=== PATIENT | male | born 1985 | race Caucasian/White ===

== ENCOUNTER 2018-12-02 16:32 | Emergency (ER) | payer SELFPAY | END 2018-12-03 01:34 | disposition left against medical advice (07) | LOC: FTE 12-03 01:34 | DX: S00.11XA Contusion of right eyelid and periocular area, initial encounter (principal); Y04.8XXA Assault by other bodily force, initial encounter | CPT/HCPCS: 70450; 70486; 72125; 99284-25 ==

== ENCOUNTER 2018-12-04 09:59 | Emergency (ER) | payer SELFPAY ==
[2018-12-04] MEDS ORDERED: TRIMETHOPRIM/SULFAMETHOX (DS) TAB PO (11:00)
[2018-12-04] MEDS ORDERED: AMOXICILLIN/CLAV 875 MG TAB PO (11:00)
[2018-12-04] MEDS ORDERED: SOD CHLORIDE 0.9% 1,000 ML IV (11:00)
== END 2018-12-04 11:16 | disposition left against medical advice (07) ==
LOC: FTE 09:59
DX: S00.11XA Contusion of right eyelid and periocular area, initial encounter (principal); H44.001 Unspecified purulent endophthalmitis, right eye; F17.210 Nicotine dependence, cigarettes, uncomplicated; Y08.89XA Assault by other specified means, initial encounter
CPT/HCPCS: 99283

== ENCOUNTER 2018-12-14 11:13 | Emergency (ER) | payer SELFPAY | END 2018-12-14 11:49 | disposition left against medical advice (07) | LOC: E/R 11:49 | DX: Z53.21 Procedure and treatment not carried out due to patient leaving prior to being seen by health care provider (principal) ==

== ENCOUNTER 2019-02-07 11:16 | Emergency (ER) | payer SELFPAY | END 2019-02-07 12:51 | disposition left against medical advice (07) | LOC: FTE 12:51 | DX: Z53.21 Procedure and treatment not carried out due to patient leaving prior to being seen by health care provider (principal) ==

== ENCOUNTER 2019-02-12 21:33 | Emergency (ER) | payer BC | END 2019-02-13 00:40 | disposition home or self-care (01) | LOC: FTE 02-13 00:40 | DX: K08.89 Other specified disorders of teeth and supporting structures (principal); F17.210 Nicotine dependence, cigarettes, uncomplicated | CPT/HCPCS: 99283; Z7502 ==